=== PATIENT | female | born 1965 | race Caucasian/White ===

== ENCOUNTER 2024-06-25 05:59 | Emergency (ER) | payer OTHER, SELFPAY ==
[2024-06-25 06:34] VITALS: BP 146/93; PULSE 57; TEMP 36.8; O2SAT 96; BMI 31.0
--- NOTE | 2024-06-25 06:45 | XR_ITS ---
The [address] [address] Patient Name: ZAHIRA KNOX MRN: [id number] date: 1965 Sex: F Assigned Patient Location: ER Current Patient Location: ER Accession/Order Number: [id number] Exam Date: 06/25/2024 06:47 Report Date: 06/25/2024 07:02 At the request of: JEREMY MASON Procedure: XR chest 1V EXAMINATION: XR chest 1V HISTORY: cough COMPARISON: XR chest 06/20/2022 FINDINGS: LUNGS: No significant pulmonary parenchymal abnormalities. VASCULATURE: No increased pulmonary vasculature. PLEURA: No pneumothorax, effusion, or pleural thickening. CARDIAC: No cardiomegaly or cardiac silhouette abnormality. MEDIASTINUM: No visible mass or adenopathy. BONES: Mechanical fusion of lower cervical spine. OTHER: Negative. XR/XR chest 1V IMPRESSION: 1. No acute cardiopulmonary process. Electronically authenticated by: PEDRO LIVINGSTON Date: 06/25/2024 07:02
[2024-06-25 07:16] VITALS: BP 138/88; PULSE 53; O2SAT 96
[2024-06-25 07:22] LABS: Influenza Virus A Antigen Negative; Influenza Virus B Antigen Negative; Internal Control Within Normal Limits
[2024-06-25 07:25] LABS: Internal Control Within Normal Limits; SARS-CoV-2 Ag NEGATIVE (NEGATIVE)
--- NOTE | 2024-06-25 07:31 | ED_ITS ---
HPI - URI/Sore Throat General Chief Complaint: Upper Respiratory Infection Stated Complaint: BODYACHE Time Seen by Provider: 06/25/24 07:08 Source: patient Limitations: no limitations History of Present Illness HPI Narrative: 58-year-old female presents to the emergency department for cough and bodyaches of 3 days duration. She has been coughing up mostly clear phlegm. No vomiting or diarrhea and she has not had a fever. She states when she had this before her doctor gave her a shot of a steroid and it made her a lot better. She has an inhaler at home and has been using it because she has been having some wheezing. Related Data Home Medications ?Medication ?Instructions ?Recorded ?Confirmed atenolol 50 mg tablet 75 mg PO Q24H 06/25/24 06/25/24 citalopram 20 mg tablet 20 mg PO DAILY 06/25/24 06/25/24 montelukast 10 mg tablet 10 mg PO DAILY 06/25/24 06/25/24 piroxicam 10 mg capsule 10 mg PO DAILY 06/25/24 06/25/24 rosuvastatin 5 mg tablet 5 mg PO DAILY 06/25/24 06/25/24 Previous Rx's ?Medication ?Instructions ?Recorded benzonatate 100 mg capsule 100 mg PO TID PRN cough #20 caps 06/25/24 prednisone 10 mg tablet See Rx Instructions .Route 06/25/24 .COMPLEX #18 tabs Allergies Allergy/AdvReac Type Severity Reaction Status Date / Time No Known Drug Allergies Allergy Verified 06/25/24 06:37 Review of Systems ROS Narrative A ten point review of systems is negative except as noted above. Exam Narrative Exam Narrative: Nurses note and vital signs reviewed and patient is not hypoxic. General: The patient appears well and in no apparent distress. Skin: Warm, dry, no pallor noted. There is no rash noted. Head: Normocephalic, atraumatic Eye: Normal conjunctiva, no drainage Ears, Nose, Mouth, and Throat: oral mucosa is moist. Nares patent. Cardiovascular: Regular Rate and Rhythm, not tachycardic Respiratory: Patient is in no distress, no accessory muscle use, lungs are clear to auscultation, no wheezing, rales or rhonchi Back: non-tender GI: Soft and nontender Musculoskeletal: The patient has no evidence of calf tenderness, no pitting edema, symmetrical pulses noted bilaterally Neurological: Awake and alert Psychiatric: Cooperative Constitutional Vital Signs, click to edit/add: Last Vital Signs Temp 98.2 F 06/25/24 06:34 Pulse 53 L 06/25/24 07:16 Resp 18 06/25/24 07:16 BP 138/88 06/25/24 07:16 Pulse Ox 96 06/25/24 07:16 O2 Del Method Room Air 06/25/24 06:34 Course Vital Signs Vital signs: Vital Signs Temperature 98.2 F 06/25/24 06:34 Pulse Rate 57 L 06/25/24 06:34 Respiratory Rate 18 06/25/24 06:34 Blood Pressure 146/93 H 06/25/24 06:34 Pulse Oximetry 96 06/25/24 06:34 Oxygen Delivery Method Room Air 06/25/24 06:34 Temperature 98.2 F 06/25/24 06:34 Pulse Rate 53 L 06/25/24 07:16 Respiratory Rate 18 06/25/24 07:16 Blood Pressure 138/88 06/25/24 07:16 Pulse Oximetry 96 06/25/24 07:16 Oxygen Delivery Method Room Air 06/25/24 06:34 MDM - URI/Sore Throat MDM Narrative Medical decision making narrative: Chest x-ray, COVID, and influenza test are all negative. She was given IM Solu- Medrol and prescribed Tessalon and prednisone. Treatment diagnosis and follow- up were discussed with the patient. There is no indication for an antibiotic. Differential Diagnosis Differential diagnosis: Likely upper respiratory infection, viral infection and other (COVID, pneumonia) Lab Data Attestation: I reviewed the patient's lab results. Labs: Lab Results 06/25/24 Range/Units 06:43 Influenza Type A Ag Negative Influenza Type B Ag Negative SARS-CoV-2 Ag (CV2AG) Negative (NEGATIVE) Imaging Data Chest x-ray: Radiologist's impression: ITS Impressions Chest X-Ray 06/25/24 06:45 IMPRESSION: 1. No acute cardiopulmonary process. Electronically authenticated by: PEDRO LIVINGSTON Date: 06/25/2024 07:02 Discharge Plan Discharge Stand Alone Forms: Work/School Release, Portal Instructions Chief Complaint: Upper Respiratory Infection Clinical Impression: Upper respiratory infection Patient Disposition: Home, Self-Care Time of Disposition Decision: 07:30 Condition: Good Mode of Transportation: Private Vehicle Prescriptions / Home Meds: New prednisone 10 mg tablet See Rx Instructions .ROUTE .COMPLEX Qty: 18 0RF Rx Instructions: 3 by mouth daily for three days then 2 by mouth daily for three days then 1 by mouth daily for three days benzonatate 100 mg capsule 100 mg PO TID PRN (Reason: cough) Qty: 20 0RF No Action atenolol 50 mg tablet 75 mg PO Q24H citalopram 20 mg tablet 20 mg PO DAILY montelukast 10 mg tablet 10 mg PO DAILY piroxicam 10 mg capsule 10 mg PO DAILY rosuvastatin 5 mg tablet 5 mg PO DAILY Print Language: Fijian Instructions: Upper Respiratory Infection (ED), Viral Syndrome (ED) Referrals: FUNMILAYO TRAVIS [Primary Care Provider] - 1 week
[2024-06-25] MEDS: METHYLPREDNISOLONE SOD SUCC PF 125 MG/2 ML VIAL IM (07:41)
--- NOTE | 2024-06-25 09:57 | ECG_ITS ---
The [facility] Test Date: 2024-06-25 Pat Name: ZAHIRA KNOX Department: Room: - Gender: Female Alteration Hand: : 1965 Requested By: Order Number: [id number] Reading MD: UNRULY BANSAL Measurements Intervals [place] Rate: 53 P: 30 NE: 130 QRS: 60 QRSD: 68 T: 18 QT: 388 QTc: 370 Interpretive Statements 1100 Sinus rhythm 9110 normal ECG No previous ECG available for comparison Electronically Signed On 06-25-2024 21:28:53 EDT by UNRULY BANSAL
== END 2024-06-25 07:45 | disposition home or self-care (01) ==
PROVIDERS: Internal Medicine; Emergency Provider Emergency Medicine; PCP Family Medicine
DX: J06.9 Acute upper respiratory infection, unspecified (principal); Z20.822 Contact with and (suspected) exposure to COVID-19
CPT/HCPCS: 71045; 87804; 87811; 93005; 96372; 99284; J2919